=== PATIENT | female | born 1955 | race Caucasian/White ===

== ENCOUNTER 2024-08-01 14:02 | Emergency (ER) | payer MEDICARE ==
[~2024-08-01] VITALS: Ht 175.3 cm; Wt 104.3 kg
[2024-08-01 14:30] VITALS: PULSE 75; RESP 18; TEMP 98.3
[2024-08-01] MEDS ORDERED: AZITHROMYCIN250 MG PO (15:56)
[2024-08-01] MEDS ORDERED: MEDROL4 M2 PO (15:56)
[2024-08-01] MEDS ORDERED: VENTOLIN HFA18 GM INH (15:56)
[2024-08-01] MEDS ORDERED: ONDANSETRON ODT4 MG PO (16:29)
[2024-08-01 16:30] VITALS: BP 130/78; PULSE 87; RESP 18; TEMP 98.3; O2SAT 98
== END 2024-08-01 16:32 | disposition home or self-care (01) ==
LOC: ER 14:32
DX: R05.9 Cough, unspecified (principal); J40 Bronchitis, not specified as acute or chronic; E78.5 Hyperlipidemia, unspecified; Z86.718 Personal history of other venous thrombosis and embolism
CPT/HCPCS: 71045; 99283